=== PATIENT | female | born 1990 | race Caucasian/White ===

== ENCOUNTER 2020-03-17 04:37 | Observation (INO) | payer OTHER ==
[~2020-03-17] VITALS: Ht 162.6 cm; Wt 72.6 kg
[2020-03-17 05:26] VITALS: BP 113/68
[2020-03-17] MEDS ORDERED: PNV91TAB8 PO (15:44)
== END 2020-03-17 05:50 | disposition home or self-care (01) ==
LOC: MLD 04:37
PROVIDERS: ADMIT Obstetrics & Gynecology; ATTEND Obstetrics & Gynecology
DX: O26.893 Other specified pregnancy related conditions, third trimester (principal); R10.2 Pelvic and perineal pain; Z3A.35 35 weeks gestation of pregnancy
CPT/HCPCS: 59025; 81000; G0378

== ENCOUNTER 2020-03-17 15:39 | Inpatient (IN) | payer OTHER ==
[~2020-03-17] VITALS: Ht 162.6 cm; Wt 72.6 kg
[2020-03-17] MEDS: LACTATED RINGERS 1,000 ML IV SCH (00:04)
[2020-03-17] MEDS ORDERED: PNV91TAB8 PO (15:44)
[2020-03-17] MEDS ORDERED: NIFEdipine 10 MG CAPLF PO SCH (16:30)
[2020-03-17] MEDS ORDERED: MORPHINE SULFATE 5 MG/ML VIAL IVP PRN (16:35)
[2020-03-17] MEDS ORDERED: ONDANSETRON 4 MG/2 ML VIAL IVP PRN (16:35)
[2020-03-17 16:50] LABS: BASOPHILS % (AUTO) 0.4 % (0.0-2.0); EOSINOPHILS # (AUTO) 0.2 K/uL (0-0.4); EOSINOPHILS % (AUTO) 1.9 % (0.0-4.0); HEMATOCRIT 40.1 % (36-48); HEMOGLOBIN 13.4 g/dL (12.0-16.0); LYMPHOCYTES # (AUTO) 1.8 K/uL (2.5-16.5); LYMPHOCYTES % (AUTO) 17.5 % (20.5-51.1); MEAN CORPUSCULAR HEMOGLOBIN 31 pg (27-31); MEAN CORPUSCULAR HGB CONC 33 g/dL (33-37); MEAN CORPUSCULAR VOLUME 92.7 fL (80-94); MONOCYTES # (AUTO) 0.8 K/uL (0.8-1.0); MONOCYTES % (AUTO) 7.6 % (1.7-9.3); NEUTROPHILS # (AUTO) 7.4 K/uL (1.8-7.7); NEUTROPHILS % (AUTO) 72.6 % (42.2-75.2); PLATELET COUNT (AUTO) 274 K/uL (140-450); RED BLOOD CELL COUNT(AUTO) 4.33 MIL/uL (4.20-5.40); RED CELL DISTRIBUTION WIDTH 12.7 % (11.6-13.7); WHITE BLOOD COUNT (AUTO) 10.2 K/uL (4.8-10.8)
[2020-03-17] MEDS ORDERED: MORPHINE SULFATE 10 MG/ML VIAL ONE (16:54)
[2020-03-17] MEDS: BETAMETH ACET/BETAMETH NA PH 30 MG/5 ML VIAL IM SCH (16:59)
[2020-03-17 17:04] LABS: APPEARANCE,URINE CLEAR (CLEAR); BILIRUBIN,URINE NEGATIVE (NEGATIVE); BLOOD, URINE NEGATIVE (NEGATIVE); COLOR,URINE YELLOW (YELLOW); LEUKOCYTE ESTERASE ,URINE NEGATIVE (NEGATIVE); NITRITE, URINE NEGATIVE (NEGATIVE); UGLUCOSE NEGATIVE (NEGATIVE)
[2020-03-17 17:06] LABS: ALBUMIN 2.7 g/dL (3.4-5.0); ANION GAP 14.7 (8-16); CARBON DIOXIDE 22.5 mmol/L (21-32); CREATININE 0.7 mg/dL (0.6-1.3); POTASSIUM 4.2 mmol/L (3.5-5.1); TOTAL BILIRUBIN 0.3 mg/dL (0.0-1.0)
[2020-03-17 18:43] VITALS: BP 113/57
[2020-03-17] MEDS: NIFEdipine 10 MG CAPLF PO SCH (21:02)
[2020-03-18] MEDS: LACTATED RINGERS 1,000 ML IV SCH ×2 (02:55→21:25)
[2020-03-18] MEDS: NIFEdipine 10 MG CAPLF PO SCH ×3 (03:02→14:53)
[2020-03-18] MEDS: NALBUPHINE 10 MG/ML AMP IVP PRN ×2 (14:34→14:52)
[2020-03-18] MEDS ORDERED: BETAMETH ACET/BETAMETH NA PH 30 MG/5 ML VIAL IM ONE ×2 (17:10→17:30)
[2020-03-18] MEDS: BETAMETH ACET/BETAMETH NA PH 30 MG/5 ML VIAL IM SCH (17:21)
[2020-03-18] MEDS ORDERED: CARBOPROST 250 MCG/ML AMP IM PRN (20:25)
[2020-03-18] MEDS ORDERED: METHYLERGONOVINE 0.2 MG/ML AMP IM PRN (20:25)
[2020-03-18] MEDS ORDERED: ROPIVACAINE 0.2%/NS PREMIX 200 ML EPI ONE (21:22)
[2020-03-18] MEDS ORDERED: OXYTOCIN 20 UNITS in LACTATED RINGERS 1,000 ML IV SCH (23:10)
[2020-03-19] MEDS: LACTATED RINGERS 1,000 ML IV SCH (02:55)
--- NOTE | 2020-03-19 08:32 | NUR ---
PATIENT HAS BEEN SCREENED AND CATEGORIZED LOW NUTRITION RISK. PATIENT WILL BE SEEN WITHIN 7 DAYS OF ADMISSION. 03/24/[address]
[2020-03-19] MEDS ORDERED: TERBUTALINE 1 MG/ML VIAL SUBQ ONE (09:19)
[2020-03-19] MEDS ORDERED: TERBUTALINE 1 MG/ML VIAL SUBQ SCH (09:25)
[2020-03-19] MEDS ORDERED: ceFAZolin 1,000 MG VIAL ONE (09:30)
[2020-03-19] MEDS ORDERED: MIDAZOLAM 2 MG/2 ML VIAL ONE (09:34)
[2020-03-19] MEDS ORDERED: LIDOCAINE MPF 2% 100 MG/5 ML VIAL INJ ONE (09:35)
[2020-03-19] MEDS ORDERED: MORPHINE PRES FREE 10 MG/10 ML AMP IV ONE (09:36)
[2020-03-19] MEDS ORDERED: MEASLES, MUMPS, AND RUBELLA 1 VIAL SQVAC PRN (10:25)
[2020-03-19] MEDS ORDERED: ONDANSETRON 4 MG/2 ML VIAL IVP PRN ×2 (10:25)
[2020-03-19] MEDS ORDERED: diphenhydrAMINE 50 MG/ML VIAL ONE (10:25)
[2020-03-19] MEDS ORDERED: NALBUPHINE 10 MG/ML AMP IVP PRN (10:25)
[2020-03-19] MEDS ORDERED: OXYTOCIN 20 UNITS in LACTATED RINGERS 1,000 ML IV SCH ×2 (10:25)
[2020-03-19] MEDS ORDERED: diphenhydrAMINE 50 MG/ML VIAL IVP PRN ×2 (10:25)
[2020-03-19] MEDS ORDERED: HYDROmorphone 1 MG/ML AMP IVP PRN (10:25)
[2020-03-19] MEDS ORDERED: NALOXONE 0.4 MG/ML VIAL IVP PRN ×3 (10:25)
[2020-03-19] MEDS ORDERED: MEPERIDINE 25 MG/ML SYR IVP PRN (10:25)
[2020-03-19] MEDS ORDERED: METHYLERGONOVINE 0.2 MG/ML AMP IM PRN (10:25)
[2020-03-19] MEDS: OXYTOCIN 20 UNITS/LR PREMIX 1,000 ML IV ONE ×2 (11:15→11:28)
[2020-03-19] MEDS: KETOROLAC 30 MG/ML VIAL IM/IVP SCH ×3 (11:54→23:53)
[2020-03-19] MEDS ORDERED: PROMETHAZINE 25 MG/ML VIAL IVP PRN (18:45)
[2020-03-19] MEDS ORDERED: OXYTOCIN 20 UNITS/LR PREMIX 1,000 ML IV ONE (22:36)
[2020-03-20 05:56] LABS: BASOPHILS % (AUTO) 0.2 % (0.0-2.0); EOSINOPHILS % (AUTO) 0.1 % (0.0-4.0); LYMPHOCYTES # (AUTO) 2.1 K/uL (2.5-16.5); LYMPHOCYTES % (AUTO) 16.3 % (20.5-51.1); MEAN CORPUSCULAR HEMOGLOBIN 31 pg (27-31); MEAN CORPUSCULAR HGB CONC 33 g/dL (33-37); MEAN CORPUSCULAR VOLUME 93.5 fL (80-94); MONOCYTES % (AUTO) 8.1 % (1.7-9.3); NEUTROPHILS # (AUTO) 9.6 K/uL (1.8-7.7); NEUTROPHILS % (AUTO) 75.3 % (42.2-75.2); PLATELET COUNT (AUTO) 199 K/uL (140-450); RED BLOOD CELL COUNT(AUTO) 3.21 MIL/uL (4.20-5.40); RED CELL DISTRIBUTION WIDTH 12.8 % (11.6-13.7); WHITE BLOOD COUNT (AUTO) 12.8 K/uL (4.8-10.8)
[2020-03-20] MEDS: KETOROLAC 30 MG/ML VIAL IM/IVP SCH ×2 (06:18→12:00)
[2020-03-20] MEDS: bisacodyL 10 MG SUPP RC SCH (09:00)
[2020-03-20] MEDS: oxyCODONE/APAP 5/325 MG 1 TAB TAB PO PRN ×3 (12:41→22:38)
[2020-03-20] MEDS: IBUPROFEN 800 MG TAB PO PRN ×2 (13:54→21:37)
[2020-03-20] MEDS: SIMETHICONE 80 MG TAB.CHEW PO PRN (22:03)
[2020-03-21] MEDS: oxyCODONE/APAP 5/325 MG 1 TAB TAB PO PRN (04:28)
[2020-03-21] MEDS: bisacodyL 10 MG SUPP RC SCH (09:34)
[2020-03-21] MEDS: IBUPROFEN 800 MG TAB PO PRN (11:01)
[2020-03-21] MEDS: SIMETHICONE 80 MG TAB.CHEW PO PRN (11:02)
[2020-03-21] MEDS ORDERED: CAMERA MC ONE (19:38)
[2020-03-22] MEDS: IBUPROFEN 800 MG TAB PO PRN (11:10)
== END 2020-03-22 15:30 | disposition home or self-care (01) | DRG 540 ==
LOC: MLD 15:39 → MFCC 03-19 11:50
PROVIDERS: ADMIT Obstetrics & Gynecology; ATTEND Obstetrics & Gynecology
PROC: 10D00Z1 Extraction of Products of Conception, Low, Open Approach (ICD-10-PCS; principal; 2020-03-20)
DX: O72.2 Delayed and secondary postpartum hemorrhage (principal); O45.8X3 Other premature separation of placenta, third trimester; O60.14X0 Preterm labor third trimester with preterm delivery third trimester, not applicable or unspecified; O76 Abnormality in fetal heart rate and rhythm complicating labor and delivery; Z37.0 Single live birth; O99.284 Endocrine, nutritional and metabolic diseases complicating childbirth; O99.344 Other mental disorders complicating childbirth; E78.5 Hyperlipidemia, unspecified; F41.9 Anxiety disorder, unspecified; Z3A.36 36 weeks gestation of pregnancy; Z20.828 Contact with and (suspected) exposure to other viral communicable diseases
CPT/HCPCS: 36415; 51702; 76815; 80053; 81003; 85025; 86592; 86886; 86900; 86901; 88307; J0690; J0702; J1200; J1885; J2001; J2210; J2250; J2270; J2300; J2405; J2590; J2795; J3105; J7120